=== PATIENT | male | born 1970 | race Caucasian/White ===

== ENCOUNTER 2017-05-18 04:02 | Emergency (ER) | payer BC, OTHER ==
[2017-05-18 04:47] LABS: ALT (SGPT) 19 U/L (8-55); AST (SGOT) 17 U/L (5-34); Alkaline Phosphatase 56 U/L (40-150); Anion Gap 17 mmol/L (10-20); BUN (Urea Nitrogen) 18 mg/dL (8.9-20.6); Bilirubin, Total 0.6 mg/dL (0.2-1.2); CK (CPK) 58 U/L (30-200); Calc. Creatinine Clearance 0 mL/min (70-130); Calcium 9.1 mg/dL (7.8-10.44); Carbon Dioxide 19 mmol/L (22-29); Chloride 105 mmol/L (98-107); Estimated GFR-MDRD 66; Globulin 4.2 g/dL (2.4-3.5); Protein, Total 8.5 g/dL (6.0-8.3)
[2017-05-18 04:51] LABS: Troponin I Less than 0.010 ng/mL (< 0.028)
[2017-05-18 05:16] LABS: #Eosinphils 0.1 thou/uL (0.0-0.7); #Lymphocytes 1.2 thou/uL (1.20-3.40); #Monocytes 0.4 thou/uL (0.11-0.59); #Neutrophils 6.9 thou/uL (1.40-6.50); %Basophils 0.1 % (0.0-1.0); %Eosinophils 0.6 % (0.0-10.0); %Lymphocytes 13.7 % (21.0-51.0); %Monocytes 4.5 % (0.0-10.0); Hematocrit 47.8 % (42.0-52.0); Mean Platelet Volume 10.4 fL (7.4-10.4); Red Blood Cell (RBC) Count 5.57 mill/uL (4.70-6.10); White Blood Cell (WBC) Count 8.5 thou/uL (4.8-10.8)
--- NOTE | 2017-05-18 07:57 | RAD ---
CHEST 1 VIEW: Date: 05/18/17 HISTORY: Chest pain and chest tightness. COMPARISON: 12/25/16. FINDINGS: Portable upright chest demonstrates normal cardiac silhouette. Pulmonary vessels and hilum are tam l. Costophrenic angles are clear. Lungs are hyperinflated. Chronic changes in the lung bases. No con solidation or mass. No pneumothorax or osseous abnormalities. IMPRESSION: No acute cardiopulmonary process. POS: [facility]
== END 2017-05-18 05:30 | disposition home or self-care (01) ==
LOC: ERS 04:02
DX: R07.89 Other chest pain (principal); E78.5 Hyperlipidemia, unspecified; F17.200 Nicotine dependence, unspecified, uncomplicated
CPT/HCPCS: 36415; 71010; 80053; 82553; 84484; 85025; 93005

== ENCOUNTER 2020-03-25 06:47 | Emergency (ER) | payer BC ==
--- NOTE | 2020-03-25 08:07 | RAD ---
Chest one view HISTORY: Chest and back pain. COMPARISON: 05/18/2017. FINDINGS: Cardiac silhouette is magnified by projection. Pulmonary vasculature upper limits of normal . Mediastinum is midline. No lobar consolidation or evidence of pneumothorax. Monitor leads overlie the chest. IMPRESSION : No abnormalities are demonstrated.
[2020-03-25 08:28] LABS: #Eosinphils 0.1 thou/uL (0.0-0.7); #Lymphocytes 0.9 thou/uL (1.20-3.40); #Monocytes 0.4 thou/uL (0.11-0.59); #Neutrophils 5.6 thou/uL (1.40-6.50); %Basophils 0.1 % (0.0-1.0); %Eosinophils 1.1 % (0.0-10.0); %Lymphocytes 12.3 % (21.0-51.0); %Monocytes 5.2 % (0.0-10.0); %Neutrophils 81.4 % (42.0-75.0); Hemoglobin 15.6 g/dL (14.0-18.0); Mean Corpuscular HGB CONC 34.4 g/dL (32.0-36.0); Mean Corpuscular Hemoglobin 29.1 pg (27.0-31.0); Mean Corpuscular Volume 84.8 fL (78.0-98.0); Mean Platelet Volume 11.1 fL (7.4-10.4); Platelet Count 110 thou/uL (130-400); RBC Distribution Width 11.7 % (11.5-14.5); Red Blood Cell (RBC) Count 5.35 mill/uL (4.70-6.10); White Blood Cell (WBC) Count 6.9 thou/uL (4.8-10.8)
[2020-03-25 08:40] LABS: ALT (SGPT) 19 U/L (8-55); AST (SGOT) 17 U/L (5-34); Albumin 4.4 g/dL (3.5-5.0); Alkaline Phosphatase 46 U/L (40-110); Anion Gap 15 mmol/L (10-20); BUN (Urea Nitrogen) 16 mg/dL (8.9-20.6); Bilirubin, Total 0.5 mg/dL (0.2-1.2); Calc. Creatinine Clearance 0 mL/min (70-130); Carbon Dioxide 22 mmol/L (22-29); Chloride 104 mmol/L (98-107); Estimated GFR-MDRD 82; Globulin 3.5 g/dL (2.4-3.5); Glucose 95 mg/dL (70-105); Potassium 4.2 mmol/L (3.5-5.1); Protein, Total 7.9 g/dL (6.0-8.3); Sodium 137 mmol/L (136-145)
[2020-03-25] MEDS ORDERED: Ketorolac Tromethamine 30 MG/ML VIAL ONE (09:20)
== END 2020-03-25 09:28 | disposition home or self-care (01) ==
LOC: ERS 06:47
DX: S23.41XA Sprain of ribs, initial encounter (principal); M54.6 Pain in thoracic spine; E78.5 Hyperlipidemia, unspecified; E78.1 Pure hyperglyceridemia; F17.290 Nicotine dependence, other tobacco product, uncomplicated; X58.XXXA Exposure to other specified factors, initial encounter
CPT/HCPCS: 36415; 71045; 80053; 84484; 85025; 85379; 93005; 96374; J1885